=== PATIENT | female | born 1950 | race Caucasian/White ===

== ENCOUNTER 2017-02-03 13:12 | Emergency (ER) | payer OTHER ==
[~2017-02-03] VITALS: Ht 157.5 cm; Wt 90.5 kg
[~2017-02-03 13:12] MED LIST: ALBU8.5H3 INH; ASPI-535 PO; FLUT16SP24 NASAL; LEVE500S9 PO; LORA10TA3 PO; MOME13HF IH; OMEG100011 PO
[2017-02-03 13:18] VITALS: Ht 157.5 cm; Wt 90.5 kg
[2017-02-03] MEDS ORDERED: traMADol 50 MG TAB PO ONE (14:00)
--- NOTE | 2017-02-03 14:40 | RADRPT ---
PROCEDURE: Right knee x-ray CLINICAL INDICATION: Trauma 2 months ago. TECHNIQUE: AP, lateral and oblique views of the right knee were obtained. COMPARISON: None FINDINGS: The soft tissues are generous. The bony elements and joint spaces are normal. IMPRESSION: 1. Obesity. 2. Otherwise, unremarkable right knee. RPTAT:AAJJ Physician Alex Date Time Electronically viewed and signed by Jose Alejandro Grover Physician on 02/03/2017 14:40 /
[2017-02-03] MEDS ORDERED: TRAM50TA2 PO (14:47)
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
== END 2017-02-03 15:10 | disposition home or self-care (01) ==
LOC: FTE 13:12
DX: M25.561 Pain in right knee (principal); J45.909 Unspecified asthma, uncomplicated; Z79.82 Long term (current) use of aspirin
CPT/HCPCS: 73562; Z7502; Z7610